=== PATIENT | female | born 1965 | race Caucasian/White ===

== ENCOUNTER → 2018-06-13 10:53 | Outpatient (CLI) | payer OTHER, SELFPAY ==
--- NOTE | 2018-06-13 10:54 | XR_ITS ---
XR ankle wt bearing RT min 3V HISTORY: Right ankle pain ITS.REASON: fracture follow up ORDERING PHYSICIAN: Loren Stephenson DPM PATIENT AGE: 53 years Comparison: 05/29/2018 FINDINGS: Weight-bearing films were obtained again showing a tiny flake fracture tip of lateral malleolus in satisfactory alignment. Medial malleolus is intact iliac mortise is normal. Again there is mild soft tissue swelling of the ankle but less so than on the previous study. IMPRESSION: Stable a avulsion chip fracture tip of lateral malleolus
== END ==
PROVIDERS: Visit Provider Podiatrist
DX: S82.61XA Displaced fracture of lateral malleolus of right fibula, initial encounter for closed fracture (principal); T14.8XXA Other injury of unspecified body region, initial encounter
CPT/HCPCS: 73610

== ENCOUNTER 2018-08-08 15:03 | Outpatient (CLI) | payer OTHER, SELFPAY ==
[2018-08-08 15:21] VITALS: BMI 25.5
[2018-08-08 15:30] VITALS: BP 125/76; PULSE 102; RESP 18; TEMP 36.7; O2SAT 98
[2018-08-08 15:38] LABS: Basophils # 0.1 K/mm3 (0-0.2); Basophils % 0.5 % (0.1-2.0); Eosinophils # 0.1 K/mm3 (0.0-0.4); Eosinophils % 0.5 % (0.1-12.0); Hematocrit 43.5 % (37.0-47.0); Hemoglobin 14.3 g/dL (12.2-16.2); Lymphocytes # 2.4 K/mm3 (0.7-4.5); Lymphocytes % 15.8 K/mm3 (10-50); Mean Corpuscular HGB Conc 32.8 g/dL (31.8-35.4); Mean Corpuscular Hemoglobin 30.8 pg (27.0-31.2); Mean Corpuscular Volume 93.9 fl (81-99); Mean Platelet Volume 6.9 fl (7.4-10.4); Monocytes # 0.8 K/mm3 (0.1-1.0); Monocytes % 4.9 % (1.7-9.3); Neutrophils % 78.2 % (37.0-80.0); Platelet Count 374 K/mm3 (142-424); Red Blood Count 4.63 M/mm3 (4.20-5.40); Red Cell Distribution Width 13.7 % (11.5-17.5); White Blood Count 15.4 K/mm3 (4.8-10.8)
[2018-08-08 15:42] LABS: MANUAL DIFFERENTIAL MANUAL DIFFERENTIAL (MANUAL DIFF)
[2018-08-08 15:49] LABS: Alanine Aminotransferase 69 U/L (12-78); Albumin Level 4.1 gm/dL (3.4-5.0); Alkaline Phosphatase 101 U/L (46-116); Anion Gap 14.3 mEq/L (5-15); Aspartate Amino Transferase 35 U/L (15-37); Bilirubin,Total 0.8 mg/dL (0.2-1.0); Blood Urea Nitrogen 13 mg/dL (7-18); Calcium 9.7 mg/dL (8.5-10.1); Carbon Dioxide 28 mmol/L (21.0-32.0); Chloride 105 mmol/L (98-107); Creatinine Clearance Estimated 76 mL/min (0-300); Estimated Glomerular Filt Rate 66 ml/min (>60); GFR (African American) 80 ML/MIN (>60); Globulin 4.2 gm/dl (1.3-3.2); Glucose 96 mg/dL (74-106); Potassium 3.3 mmoL/L (3.5-5.1); Sodium 144 mmol/L (136-145); Total Protein,Serum 8.3 gm/dL (6.4-8.2)
[2018-08-08 16:00] LABS: Eosinophils % 1 % (0-3); Lymphocytes % 21 % (10-50); Monocytes % 1 % (2-9); Neutrophils % 77 % (42-76); Total Cells Counted 100
[2018-08-08 16:01] LABS: Platelet Estimate Normal; RBC Morphology Normal
[2018-08-08 16:30] VITALS: BP 121/74; PULSE 99; RESP 18; O2SAT 99
[2018-08-08 17:35] VITALS: BP 123/77; PULSE 100; RESP 18; O2SAT 98
== END 2018-08-08 17:40 | disposition home or self-care (01) ==
LOC: INF 15:05
PROVIDERS: PCP Nurse Practitioner Family; Visit Provider Nurse Practitioner Family
DX: R19.7 Diarrhea, unspecified (principal); E86.0 Dehydration
CPT/HCPCS: 80053; 85007; 85025; 96360; 96361

== ENCOUNTER → 2018-08-09 07:59 | Outpatient (CLI) | payer OTHER, SELFPAY ==
[2018-08-12 05:18] LABS: C difficile Toxins AB, EIA Negative (Negative)
== END ==
PROVIDERS: PCP Nurse Practitioner Family; Visit Provider Nurse Practitioner Family
DX: R19.7 Diarrhea, unspecified (principal); E86.0 Dehydration
CPT/HCPCS: 87045; 87324

== ENCOUNTER → 2018-08-26 09:57 | Outpatient (CLI) | payer OTHER, SELFPAY ==
[2018-08-26 10:19] LABS: Basophils # 0.1 K/mm3 (0-0.2); Basophils % 0.9 % (0.1-2.0); Eosinophils # 0.1 K/mm3 (0.0-0.4); Eosinophils % 1.2 % (0.1-12.0); Hemoglobin 14.2 g/dL (12.2-16.2); Lymphocytes # 2.3 K/mm3 (0.7-4.5); Lymphocytes % 25.2 K/mm3 (10-50); Mean Corpuscular HGB Conc 33.1 g/dL (31.8-35.4); Mean Corpuscular Hemoglobin 30.8 pg (27.0-31.2); Mean Corpuscular Volume 92.9 fl (81-99); Mean Platelet Volume 7.3 fl (7.4-10.4); Monocytes # 0.4 K/mm3 (0.1-1.0); Monocytes % 4.4 % (1.7-9.3); Neutrophils # 6.2 K/mm3 (1.8-7.8); Neutrophils % 68.2 % (37.0-80.0); Platelet Count 383 K/mm3 (142-424); Red Blood Count 4.63 M/mm3 (4.20-5.40); Red Cell Distribution Width 12.8 % (11.5-17.5); White Blood Count 9.1 K/mm3 (4.8-10.8)
[2018-08-26 11:02] LABS: Alanine Aminotransferase 28 U/L (12-78); Albumin Level 4.2 gm/dL (3.4-5.0); Albumin/Globulin Ratio 1.1 (1.1-1.8); Alkaline Phosphatase 85 U/L (46-116); Anion Gap 16.3 mEq/L (5-15); Aspartate Amino Transferase 16 U/L (15-37); Bilirubin,Total 0.6 mg/dL (0.2-1.0); Blood Urea Nitrogen 10 mg/dL (7-18); Calcium 9.9 mg/dL (8.5-10.1); Carbon Dioxide 28 mmol/L (21.0-32.0); Chloride 101 mmol/L (98-107); Creatinine,Serum 0.86 mg/dL (0.55-1.02); Estimated Glomerular Filt Rate 69 ml/min (>60); GFR (African American) 84 ML/MIN (>60); Globulin 3.8 gm/dl (1.3-3.2); Glucose 102 mg/dL (74-106); Potassium 4.3 mmoL/L (3.5-5.1); Sodium 141 mmol/L (136-145)
[2018-08-27 11:23] LABS: Hep A Ab, IgM Negative (Negative); Hepatitis B Core Antibody IgM Negative (Negative); Hepatitis B Surface Antigen Negative (Negative)
[2018-08-28 11:29] LABS: Hepatitis C Antibody <0.1 s/co ratio (0.0-0.9)
== END ==
PROVIDERS: PCP Nurse Practitioner Family; Visit Provider Nurse Practitioner Family
DX: K52.9 Noninfective gastroenteritis and colitis, unspecified (principal); R10.13 Epigastric pain; R10.11 Right upper quadrant pain
CPT/HCPCS: 36415; 80053; 80074; 85025

== ENCOUNTER → 2019-02-10 09:29 | Outpatient (CLI) | payer OTHER, SELFPAY ==
--- NOTE | 2019-02-10 09:39 | XR_ITS ---
EXAM: XR cervical spine 5V HISTORY: Generalized neck pain ITS.REASON: DEGENERATIVE DISC DISEASE..RT AND LT UPPER EXT NUMBNESS ORDERING PHYSICIAN: Rajwinder Keller PATIENT AGE: 53 years COMPARISON: Cervical spine with obliques 11/17/2015 FINDINGS: There is normal curvature and alignment. C1-C7 appear intact.There is minor disc space narrowing at the C5-6 level with minimal spurring of the anterior inferior border of C5 and this was noted previously. Oblique films show normal neural foramina bilaterally. The prevertebral soft tissues are normal and the odontoid is normal.. IMPRESSION: Minor degenerative disc disease C5-6 otherwise essentially unremarkable cervical spine. End of symptoms persist posterior MRI scan will be helpful for additional evaluation
== END ==
PROVIDERS: PCP Nurse Practitioner Family; Visit Provider Nurse Practitioner Family
DX: R20.0 Anesthesia of skin (principal); M50.30 Other cervical disc degeneration, unspecified cervical region
CPT/HCPCS: 72050

== ENCOUNTER → 2019-05-23 08:58 | Outpatient (POV) | payer OTHER, SELFPAY | PROVIDERS: Visit Provider Specialist | DX: R20.0 Anesthesia of skin (principal) | CPT/HCPCS: 95886; 95910 ==

== ENCOUNTER → 2021-02-28 11:58 | Outpatient (CLI) | payer OTHER, SELFPAY | PROVIDERS: PCP Nurse Practitioner Family; Visit Provider Nurse Practitioner Family | DX: Z20.822 Contact with and (suspected) exposure to COVID-19 (principal) | CPT/HCPCS: U0003 ==

== ENCOUNTER 2021-05-04 11:29 | Emergency (ER) | payer OTHER, SELFPAY ==
[2021-05-04 11:30] VITALS: BP 136/78; PULSE 82; RESP 20; TEMP 36.9; O2SAT 98; BMI 27.4
--- NOTE | 2021-05-04 11:37 | XR_ITS ---
PROCEDURE: XR ANKLE LT MIN 3V CLINICAL INDICATION: FALL Pain COMPARISON: CR FTL3 FOOT-LT-3 VIEWS from 03/10/2013 CR ANKCMRT XR ankle RT min 3V from 05/29/2018 CR [id number] XR ankle wt bearing RT min 3V from 06/13/2018 FINDINGS: There is soft tissue swelling in the lateral ankle. A curvilinear area of calcification is present at the tip of the lateral malleolus consistent with an avulsion fracture with only minimal displacement distally by 1-2 mm. There is an old avulsion fracture of the medial malleolus. IMPRESSION: Avulsion fracture of the lateral malleolus with soft tissue swelling. The margins of the fracture somewhat sclerotic superiorly. The fracture could be chronic however there is associated soft tissue swelling. Please correlate with clinical parameters. Dictated by: Miguel Mcbride MD 05/04/2021 11:56 Miguel Mcbride MD in [place] 05/04/2021 11:56
--- NOTE | 2021-05-04 12:01 | HMH.EDUTC ---
[facility] Disposition Clinical Impression: Ankle fracture Qualifiers: Encounter type: initial encounter Fracture type: closed Laterality: left Qualified Code(s): S82.892A - Other fracture of left lower leg, initial encounter for closed fracture Disposition: Home, Self-Care Condition on Discharge: Good Instructions: DI for Ankle Fracture Additional Instructions: Rest the extremity, apply ice for 15 minutes as tolerated three or four times per day, Wear the hever wrap for compression, Elevate the extremity as tolerated while you are resting. Take ibuprofen for pain. I sent in a prescription to your pharmacy. Follow up with Dr. Stephenson (podiatry). I put in a referral but you need to call her office and schedule an appointment. Follow up with your regular doctor. GO TO THE ER FOR ANY WORSENING SYMPTOMS Prescriptions: Ibuprofen [Ibuprofen 600mg Tablet] 600 mg PO Q6HP PRN #30 tab PRN Reason: Mild Pain Transmission Status: Received by [facility] Referrals: Rajwinder Keller APRN [Primary Care Provider] - Loren Stephenson DPM [Staff Physician] - Time of Disposition: 12:02 Medical Decision Making - Medical Records Medical records reviewed: No: I reviewed the patient's medical records. - Keyur Inquiry Pt receiving controlled substance: No Vital Signs: 05/04/21 11:30 05/04/21 12:13 Temperature 98.4 F 98.4 F Temperature Source Oral Pulse Rate 82 Pulse Rate [Right Brachial] 82 Respiratory Rate 20 20 Blood Pressure 136/78 Blood Pressure [Right Arm] 136/78 Blood Pressure Mean [Right Arm] 97 Blood Pressure Source [Right Arm] Automatic Cuff Blood Pressure Position [Right Arm] Sitting 02 Sat by Pulse Oximetry 98 Oxygen Delivery Method Room Air - Radiology Data #1 Image(s): Ankle Image Reviewed: Yes I reviewed the patient's radiology image, Yes I have reviewed radiologist's interpretation Preliminary Findings: Abnormal PROCEDURE: XR ANKLE LT MIN 3V CLINICAL INDICATION: FALL Pain COMPARISON: CR FTL3 FOOT-LT-3 VIEWS from 03/10/2013 CR ANKCMRT XR ankle RT min 3V from 05/29/2018 CR ANKWBR3 XR ankle wt bearing RT min 3V from 06/13/2018 FINDINGS: There is soft tissue swelling in the lateral ankle. A curvilinear area of calcification is present at the tip of the lateral malleolus consistent with an avulsion fracture with only minimal displacement distally by 1-2 mm. There is an old avulsion fracture of the medial malleolus. IMPRESSION: Avulsion fracture of the lateral malleolus with soft tissue swelling. The margins of the fracture somewhat sclerotic superiorly. The fracture could be chronic however there is associated soft tissue swelling. Please correlate with clinical parameters. Dictated by: Miguel Mcbride MD 05/04/2021 11:56 Miguel Mcbride MD in [place] 05/04 [facility] HPI - General Stated complaint: lt ankle pain Time Seen by Provider: 05/04/21 11:35 Mode of Arrival: Ambulatory Source of Information: Patient Limitations: No Limitations Description of Symptoms (Recalled from Triage Doc. by RN): PATIENT C/O INJURY TO LEFT ANKLE AFTER FALLING DOWN 3 STEPS OFF OF HER PORCH YESTERDAY AROUND 1600 HEENT Symptoms (Recalled from RN notes): No Resp Symptoms (Recalled from RN notes): No Skin Symptoms (Recalled from RN notes): No MS Symptoms (Recalled from RN notes): Yes Functional Status (Recalled from RN notes): WNL - History of Present Illness Provider Complaint: She states that yesterday evening she fell down her steps and twisted her left ankle. Since then she has had left ankle pain and swelling. - Related Data Home Medications Medication Instructions Recorded Confirmed celecoxib 200 mg capsule 200 mg PO DIRECTED 30 Days #30 05/30/18 08/08/18 omeprazole 40 mg capsule,delayed 40 mg PO DAILY 30 Days #30 05/30/18 08/08/18 release Previous Rx's Medication Instructions Recorded Ibuprofen [Ibuprofen 600mg 600 mg PO Q6HP PRN #30 tab 0
[2021-05-04 12:13] VITALS: BP 136/78; PULSE 82; RESP 20; TEMP 36.9; O2SAT 98
== END 2021-05-04 12:15 | disposition home or self-care (01) ==
PROVIDERS: Emergency Provider Nurse Practitioner Family; PCP Nurse Practitioner Family
DX: S82.65XA Nondisplaced fracture of lateral malleolus of left fibula, initial encounter for closed fracture (principal); W10.9XXA Fall (on) (from) unspecified stairs and steps, initial encounter; Y92.019 Unspecified place in single-family (private) house as the place of occurrence of the external cause; K21.9 Gastro-esophageal reflux disease without esophagitis; F17.210 Nicotine dependence, cigarettes, uncomplicated
CPT/HCPCS: 29515; 73610; 99202; G0463

== ENCOUNTER → 2022-03-23 11:01 | Outpatient (CLI) | payer BC, SELFPAY ==
--- NOTE | 2022-03-23 11:14 | XR_ITS ---
FINAL REPORT CLINICAL HISTORY: LEFT ANTERIOR PAIN, no known injury FINDINGS: 3 views of the left knee were obtained. There is no acute fracture or dislocation. The joint spaces are intact. There is no soft tissue abnormality. IMPRESSION: No acute process. Reviewed, Interpreted and Dictated by Moises Smalls MD Transcribed by Janusz Santoyo Authenticated by Moises Smalls MD on 03/23/2022 01:27:48 PM [facility]
[2022-03-23 13:09] LABS: Alanine Aminotransferase 15 U/L (12-78); Albumin Level 4.3 g/dl (3.5-5.0); Albumin/Globulin Ratio 1.6 (1.1-1.8); Alkaline Phosphatase 77 U/L (38-126); Anion Gap 9.3 mEq/L (5-15); Aspartate Amino Transferase 18 U/L (14-36); Bilirubin,Total 0.6 mg/dl (0.2-1.3); Blood Urea Nitrogen 5 mg/dl (7-17); Calcium 9.6 mg/dl (8.4-10.2); Carbon Dioxide 31 mmol/L (22.0-30.0); Chloride 106 mmol/L (98-107); Chol/HDL Ratio 6.8 (1-3.5); Cholesterol 277 mg/dl (140-200); Estimated Glomerular Filt Rate 87 ml/min (>60); GFR (African American) 105 ML/MIN (>60); Globulin 2.7 g/dL (1.3-3.2); Glucose 101 mg/dl (74-100); HDL Cholesterol 41 mg/dl (40-60); Potassium 4.3 mmoL/L (3.5-5.1); Sodium 142 mmol/L (136-145); Triglycerides 212 mg/dl (30-150); VLDL Cholesterol 42 mg/dL (0-40)
[2022-03-23 13:20] LABS: Direct LDL Cholesterol 155.81 mg/dL (100-129)
[2022-03-23 13:44] LABS: Hemoglobin A1C 5.1 % (4.0-6.0)
[2022-03-23 13:59] LABS: Vitamin B12 205 pg/mL (239-931)
[2022-03-24 13:43] LABS: Antinuclear Antibodies, IFA Negative (.)
== END ==
PROVIDERS: PCP Nurse Practitioner Family; Visit Provider Nurse Practitioner Family
DX: M25.562 Pain in left knee (principal); R23.2 Flushing; R20.0 Anesthesia of skin; Z13.220 Encounter for screening for lipoid disorders; Z13.29 Encounter for screening for other suspected endocrine disorder; Z79.899 Other long term (current) drug therapy
CPT/HCPCS: 36415; 73562; 80053; 80061; 82607; 83036; 84443; 86038

== ENCOUNTER 2022-04-11 09:45 | Outpatient (RCR) | payer OTHER, SELFPAY | END 2022-04-11 09:50 | disposition home or self-care (01) | LOC: PT 09:45 | PROVIDERS: PCP Nurse Practitioner Family; Visit Provider Nurse Practitioner Family | DX: M25.562 Pain in left knee (principal) | CPT/HCPCS: 97163 ==

== ENCOUNTER → 2022-04-17 06:54 | Outpatient (CLI) | payer OTHER, SELFPAY ==
--- NOTE | 2022-04-17 06:57 | CA_ITS ---
APPROVED REPORT EXAM: Comprehensive 2D, Doppler, and color-flow Echocardiogram Airdox Fitter: Jazmyn Linares, RCS, RVS Ht: 5 ft 2 in Wt: 135lbs BSA: 1.62 BP: 119/84 mmHg Indications: CP, Smoker, ABN EKG, STINSON 2D Dimensions IVSd 0.66 cm LVEF (Visual) 68.80 % PWd 0.79 cm LVDd 4.41 cm LVDs 2.72 cm Left Atrium 2.68 cm LVOT 1.73 cm (M/F) 1.5-2.5 M-Mode Dimensions RVDd 2.69 cm (0.9-2.6) LA Diam 2.67 cm (1.9-4.0) LVDd 3.76 cm (3.5-5.7) Ao Diam 2.39 cm (2.0-3.7) LVDs 2.79 cm (3.5-5.7) IVSd 0.66 cm (0.6-1.1) PWd 0.66 cm (0.6-1.1) EF (Teich) 51.50% EPSs 0.47 cm FS 25.80% EDV (Teich) 60.40 mL TAPSE 1.11 (<1.7) ESV (Teich) 29.30 mL LV Diastology E Decel Time 150.00 (160-240 msec) E/A Ratio 1.01 MED E' 10.30 (< 7 cm/sec) MED A' 6.50 cm/s E'/MED E' Ratio 5.98 (>14) LAT E' 11.10 (<10 cm/sec) LAT A' 6.40 cm/s E/LAT E' Ratio 5.55 (>14) Aortic Valve LVOT Max 96.00 (70-110 cm/s) LVOT VTI 17.33 cm AoV Peak Brad. 116.00 (50-130 cm/s) AO Peak GR. 5.40 mmHg AO Mean GR. 2.70 (<5 mmHg) AO VTI 22.90 (18-25 cm) TOREY (VTI) 1.78 (2.5-4.5 cm2) Mitral Valve MV A Velocity 61.00 (40-130 cm/s) E/A Ratio 1.01 MV Decel. Time 150.00 (160-240 ms) MV Mean Gr. 1.30 (<2mmHg) MV PHT 50.00 ms Pulmonary Valve PV Peak Velocity 67.00 (50-150 cm/s) Tricuspid Valve TR P. Velocity 209.00 cm/s RAP Estimate 10.00 mmHg RVSP 27.50 mmHg Left Ventricle Left atrium normal size, left ventricle is normal size, there is no concentric left ventricular hypertrophy, estimated ejection fraction 55% with no regional wall motion abnormality, diastolic parameters are within normal range. Right Ventricle Right atrium and right ventricle are normal size and contractility. Aortic Valve Aortic valve is minimally thickened and fibrosed, there is no aortic stenosis or aortic insufficiency. Mitral Valve Mitral valve grossly normal, there is trace mitral regurgitation. Tricuspid Valve Tricuspid valve grossly normal, there is trace tricuspid regurgitation, calculated right ventricular systolic pressure 27 mmHg. Pulmonic Valve Pulmonic valve is poorly visualized. Great Vessels Aortic root is normal size. Inferior vena cava normal size with no respiratory collapse. Pericardium No significant pericardial effusion noted. Conclusion 1. Normal left ventricular size, preserved left ventricular systolic function, estimated ejection fraction 55% with no regional wall motion abnormality, diastolic parameters are within normal range. 2. Trace mitral and tricuspid regurgitation, calculated right ventricular systolic pressure 27 mmHg. 3. No significant pericardial effusion. 4. Inferior vena cava normal size with normal inspiratory collapse. Electronically signed by : Gomez Momin MD 04/17/2022 20:40:35
--- NOTE | 2022-04-17 06:57 | NM_ITS ---
APPROVED REPORT Exam: Nuclear Stress Test Indication: SOB, Abnormal EKG, Fatigue, Tobacco use, Family history Patient Location: Outpatient Stress Tech: Geri Pineda [place] Tech:Ava Gonzalez, ARRT, RT (R)(N) Ht: 5 ft 4 in Wt: 137 lbs Bra Size: 34B HR: 87 bpm BP: 114/75 mmHg BSA: 1.67 m2 TID: 1.00 BMI: 23.5 History: SOB, Abnormal EKG, Fatigue, Tobacco use, Family history Procedure: Patient exercised on Dallas protocol 4:31 minutes and sec, resting heart rate 87 bpm, resting blood pressure 114/75 mmHg, with exercise maximum heart rate achived was 160 bpm which is 98 % of the maximum predicted heart rate and blood pressure was 190/90 mmHg. Test was stopped due to SOB. Patient denied any complaint of chest pain. Patient has Aortic root exercise capacity, achieved 7.0 METs of workload on treadmill, the blood pressure response to exercise was Aortic root. Electrocardiogram Resting electrocardiogram shows sinus rhythm, with exercise there is less than 1.[address] segment depression noted from the baseline EKG. The EKG portion of the exercise Myoview is negative for ischemia. Cardiac Stress and Resting SPECT Images: Cardiac Stress and Resting SPECT images were obtained using technetium 99m Myoview 28.6 mCi stress and 10.01 mCi at rest. Gated SPECT for analysis of segmental wall motion and calculation of the ejection fraction was present. Cardiac stress and resting SPECT images show uniform myocardial activity without segmental perfusion abnormality, computer derived ejection fraction is 60% with no regional wall motion abnormality, right ventricle is normal size and contractility. Conclusion: 1. The EKG portion of the exercise Myoview is negative for ischemia, patient has adequate exercise capacity achieved 7 METS of workload on treadmill, the blood pressure response to exercise was adequate, there was no exercise-induced chest discomfort. 2. No scintigraphic evidence of reversible ischemia seen, computer derived ejection fraction is 60% with no regional wall motion abnormality, right ventricle is normal size and contractility. 3. Normal exercise Myoview study. Electronically signed by : Gomez Momin MD 04/17/2022 21:04:02
--- NOTE | 2022-04-17 06:57 | CA_ITS ---
APPROVED REPORT Exam: Exercise Treadmill Technologist: Geri Soler, Ht: 5 ft 2 in Wt: 135 lbs BSA: 1.62 m2 HR: 70 bpm BP: 94/65 mmHg Medical History Medications: Pantoprazole,,,,, Hydroxyzine pamoate,,,,, Steraline,,,,, Stress Test Details Test: Dallas HR Resting HR: 87 bpm Max Heart Rate (APMHR): 164.325828 bpm Max HR Achieved: 160 bpm Target HR (85% APMHR): 139.025872 bpm % of APMHR: 97.56 Recovery HR: 82 bpm BP Resting BP: 114/75 mmHg Max BP: 190/90 mmHg Recovery BP: 133.0/68.0 mmHg ECG Clinical Exercise duration: 04:31 min Highest Stage Achieved: II Exercise capacity: 7.0 METs Stress ECG Conclusion Symptoms: SOA no CP Electronically signed by : Gomez Momin MD 04/17/2022 21:01:16
--- NOTE | 2022-04-17 09:19 | HMH.ITSHM ---
Current Home Medications as stated by this patient Monica [place] Suraj or solar sales representative. []SERTRALINE PANTOPRAZOLE HYDROXYZINE
== END ==
PROVIDERS: PCP Nurse Practitioner Family; Visit Provider Physician Assistant
DX: R06.00 Dyspnea, unspecified (principal); R07.9 Chest pain, unspecified; R53.83 Other fatigue; R94.31 Abnormal electrocardiogram [ECG] [EKG]
CPT/HCPCS: 78452; 93017; 93306; A9502

== ENCOUNTER → 2022-08-30 08:20 | Outpatient (CLI) | payer OTHER, SELFPAY ==
--- NOTE | 2022-08-30 08:26 | US_ITS ---
FINAL REPORT CLINICAL HISTORY: ABD PAIN FINDINGS: Sonographic images of the abdomen were obtained. The liver has mild increased echogenicity. The gallbladder has been surgically removed. There is no evidence of biliary ductal dilatation. The common hepatic duct measures 3 mm, which is within normal limits. Limited images of the pancreas are unremarkable. The spleen size is normal. The right kidney measures 8.3 cm in length. The left kidney measures 9.1 cm in length. There is normal renal echogenicity. There is no evidence of hydronephrosis. The aorta has an unremarkable appearance. Limited images of the inferior vena cava are unremarkable. IMPRESSION: Cholecystectomy. Mild fatty liver. Reviewed, Interpreted and Dictated by Preston Alvarado III, MD Transcribed by Janusz Santoyo Authenticated and . [facility]
== END ==
PROVIDERS: PCP Nurse Practitioner Family; Visit Provider Family Medicine
DX: R10.84 Generalized abdominal pain (principal)
CPT/HCPCS: 76700

== ENCOUNTER → 2022-10-04 09:27 | Outpatient (CLI) | payer OTHER, SELFPAY ==
--- NOTE | 2022-10-04 09:32 | CT_ITS ---
FINAL REPORT TECHNIQUE: Axial CT images of the abdomen were obtained with IV contrast only. Coronal reformatted images were also obtained. This study was performed with techniques to keep radiation doses as low as reasonably achievable (ALARA). Individualized dose reduction techniques using automated exposure control or adjustment of mA and/or kV according to the patient''s size were employed. CLINICAL HISTORY: ABD PAIN FINDINGS: The lung bases are clear. The liver parenchyma is homogeneous. The gallbladder is surgically absent. The pancreas appears normal. The spleen size is within normal limits. The adrenal glands are unremarkable. There is no evidence of renal mass or hydronephrosis. There is no evidence of adenopathy. No abnormal fluid collection is seen. No localized inflammatory processes identified. There is a moderate amount of retained stool in the colon. IMPRESSION: Moderate amount of retained stool in the colon. Absent gallbladder. Reviewed, Interpreted and Dictated by Moises Smalls MD Transcribed by Liss Davidson Authenticated and [facility]
== END ==
PROVIDERS: PCP Nurse Practitioner Family; Visit Provider Family Medicine
DX: R10.84 Generalized abdominal pain (principal)
CPT/HCPCS: 74160; Q9967

== ENCOUNTER → 2023-02-15 11:28 | Outpatient (CLI) | payer OTHER, SELFPAY ==
--- NOTE | 2023-02-15 | XR_ITS ---
FINAL REPORT CLINICAL HISTORY: KNEE PAIN fall FINDINGS: Left knee Three views were obtained. There is no acute fracture or dislocation. The joint spaces appear normal. No soft tissue abnormality is identified. IMPRESSION: No acute process. Reviewed, Interpreted and Dictated by Moises Smalls MD Transcribed by Jennifer Gonzalez Authenticated and . [facility]
--- NOTE | 2023-02-15 | XR_ITS ---
FINAL REPORT CLINICAL HISTORY: fall on right knee FINDINGS: Right knee Three views were obtained. There is no acute fracture or dislocation. The joint spaces appear normal. No soft tissue abnormality is identified. IMPRESSION: No acute process. Reviewed, Interpreted and Dictated by Moises Smalls MD Transcribed by Jennifer Gonzalez Authenticated and . [facility]
== END ==
PROVIDERS: PCP Family Medicine; Visit Provider Family Medicine
DX: M25.561 Pain in right knee (principal); M25.562 Pain in left knee; R26.2 Difficulty in walking, not elsewhere classified
CPT/HCPCS: 73562

== ENCOUNTER 2024-12-15 13:26 | Outpatient (CLI) | payer OTHER, SELFPAY ==
--- NOTE | 2024-12-15 13:28 | XR_ITS ---
FINAL REPORT CLINICAL HISTORY: bilateral medial knee pain COMPARISON: 02/15/2023 FINDINGS: LEFT KNEE Three views demonstrate no acute fracture or dislocation. The joint spaces appear normal. No acute soft tissue abnormality is seen. IMPRESSION: No acute process. Reviewed, Interpreted and Dictated by Moises Smalls MD Transcribed by Liss Davidson Authenticated and . [facility]
--- NOTE | 2024-12-15 13:28 | XR_ITS ---
FINAL REPORT CLINICAL HISTORY: bilateral medial knee pain COMPARISON: 02/15/2023 FINDINGS: RIGHT KNEE Three views demonstrate no acute fracture or dislocation. The joint spaces appear normal. No acute soft tissue abnormality is seen. IMPRESSION: No acute process. Reviewed, Interpreted and Dictated by Moises Smalls MD Transcribed by Liss Davidson Authenticated and [facility]
== END 2024-12-15 23:59 | disposition home or self-care (01) ==
LOC: RAD 13:27
PROVIDERS: PCP Nurse Practitioner Family; Visit Provider Nurse Practitioner Family
DX: M25.561 Pain in right knee (principal); M25.562 Pain in left knee
CPT/HCPCS: 73562

== ENCOUNTER 2025-10-16 10:26 | Outpatient (CLI) | payer OTHER, SELFPAY ==
[2025-10-16 16:47] LABS: Thyroid Stimulating Hormone 2.38 uIU/mL (0.465-4.68)
== END 2025-10-16 23:59 ==
LOC: LAB.DROPOF 10-19 10:30
PROVIDERS: PCP Nurse Practitioner Family; Visit Provider Nurse Practitioner Family
DX: R23.2 Flushing (principal)
CPT/HCPCS: 82670; 84144; 84443